=== PATIENT | female | born 1995 | race Caucasian/White ===

== ENCOUNTER 2020-05-25 20:53 | Emergency (ER) | payer OTHER ==
[~2020-05-25] VITALS: Ht 172.7 cm; Wt 61.2 kg
[2020-05-25 21:00] VITALS: BP 144/75
--- NOTE | 2020-05-25 21:00 | NUR ---
TO BED AMBULATORY
--- NOTE | 2020-05-25 21:26 | NUR ---
24 Y/O FEMALE PRESENTS TO ER WITH C/O LBP X 1 DAY. 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 ALSO C/O VOMITING, FEVER, NAUSEA, DIZZINESS SINCE THIS AM AROUND 3 AM. DENIES DIARRHEA, HEADACHES, HEAD INJURY, LOC, SOB, COUGH. VSS, R/R EQUAL, AND UNLABORED. LMP: 05/14/20, LBM: 05/25/20. SIDE RAIL X1, BED IN LOW POSITION, WILL CONTINUE TO MONITOR. NKDA PMH: DEPRESSION
[2020-05-25] MEDS ORDERED: KETOROLAC 30 MG/ML VIAL IVP ONE ×2 (21:50→23:20)
[2020-05-25] MEDS ORDERED: NACL 0.9% 2,000 ML IV ONE (21:50)
[2020-05-25 22:09] LABS: HEMATOCRIT 41.3 % (36-48); HEMOGLOBIN 14.3 g/dL (12.0-16.0); MEAN CORPUSCULAR HEMOGLOBIN 32 pg (27-31); MEAN CORPUSCULAR HGB CONC 35 g/dL (33-37); MEAN CORPUSCULAR VOLUME 91.3 fL (80-94); PLATELET COUNT (AUTO) 181 K/uL (140-450); RED BLOOD CELL COUNT(AUTO) 4.52 MIL/uL (4.20-5.40); RED CELL DISTRIBUTION WIDTH 13.2 % (11.6-13.7); WHITE BLOOD COUNT (AUTO) 8.6 K/uL (4.8-10.8)
[2020-05-25] MEDS ORDERED: cefTRIAXone 1,000 MG VIAL ONE (22:10)
[2020-05-25 22:14] LABS: APPEARANCE,URINE SL CLOUDY (CLEAR); BILIRUBIN,URINE NEGATIVE (NEGATIVE); BLOOD, URINE 1+ (NEGATIVE); COLOR,URINE YELLOW (YELLOW); LEUKOCYTE ESTERASE ,URINE 2+ (NEGATIVE); NITRITE, URINE POSITIVE (NEGATIVE); UGLUCOSE NEGATIVE (NEGATIVE)
[2020-05-25 22:24] LABS: WBC,URINE TOO MANY TO COUNT /HPF (0-5)
--- NOTE | 2020-05-25 22:30 | NUR ---
PT RESTING IN BED QUIETLY. NO DISTRESS VERBALIZED, OR NOTED. R/R EQUAL, AND UNLABORED. SIDE RAIL X1, BED IN LOW POSITION , HOB ELEVATED, WILL CONTINUE TO MONITOR.
[2020-05-25 22:40] LABS: ALBUMIN 4.4 g/dL (3.4-5.0); ANION GAP 14.6 (8-16); CARBON DIOXIDE 23.6 mmol/L (21-32); CREATININE 0.7 mg/dL (0.6-1.3); POTASSIUM 3.2 mmol/L (3.5-5.1); TOTAL BILIRUBIN 1.5 mg/dL (0.0-1.0)
[2020-05-25 22:41] LABS: LYMPHOCYTES % (MANUAL) 7 % (20-46); MONOCYTES % (MANUAL) 5 % (5-12)
[2020-05-25] MEDS ORDERED: NACL 0.9% 1,000 ML IV ONE (23:20)
[2020-05-25] MEDS ORDERED: NAPR-54 PO (23:31)
[2020-05-25] MEDS ORDERED: ONDA4ODT2 PO (23:31)
[2020-05-25] MEDS ORDERED: CEPH500C16 PO (23:31)
[2020-05-25] MEDS ORDERED: ACET-8386 PO (23:31)
--- NOTE | 2020-05-26 01:03 | NUR ---
PT APPEARS TO BE SLEEPING. NO DISTRESS VERBALIZED, OR NOTED. R/R EQUAL, AND UNLABORED. SIDE RAIL X1, BED IN LOW POSITION , HOB ELEVATED, WILL CONTINUE TO MONITOR.
--- NOTE | 2020-05-26 02:00 | NUR ---
Patient discharged with v/s stable. Written and verbal after care instructions given and explained. Patient alert, oriented and verbalized understanding of instructions. Ambulatory with steady gait. All questions addressed prior to discharge. ID band removed. Patient advised to follow up with PMD. Rx of NORCO; KEFLEX, NAPROSYN, ZOFRAN given. Patient educated on indication of medication including possible reaction and side effects. Opportunity to ask questions provided and answered.
[2020-05-26 02:04] VITALS: BP 108/69
== END 2020-05-26 02:00 | disposition home or self-care (01) ==
LOC: MED 20:53
DX: N12 Tubulo-interstitial nephritis, not specified as acute or chronic (principal); R50.9 Fever, unspecified; M54.9 Dorsalgia, unspecified; X50.0XXA Overexertion from strenuous movement or load, initial encounter; Y93.89 Activity, other specified; Y92.89 Other specified places as the place of occurrence of the external cause; Y99.8 Other external cause status
CPT/HCPCS: 36415; 72100; 74176; 80053; 81001; 81025; 83605; 85025; 87040; 87086; 96361; 96365; 96375; 96376; 99284; J0696; J1885; J7030